=== PATIENT | female | born 1985 | race American Indian/Alaskan Native ===

== ENCOUNTER 2020-08-24 17:39 | Emergency (ER) | payer SELFPAY ==
--- NOTE | 2020-08-24 18:03 | Event Note ---
ED Screening Note Date of service: 08/24/20 Time: 18:02 ED Screening Note: 34-year-old female presents with generalized body aches, headache, inability to walk due to pain. Patient states she is visiting here from [place] patient states she arrived via plane. This initial assessment/diagnostic orders/clinical plan/treatment(s) is/are subject to change based on patients health status, clinical progression and re- assessment by fellow clinical providers in the ED. Further treatment and workup at subsequent clinical providers discretion. Patient/guardian urged not to elope from the ED as their condition may be serious if not clinically assessed and managed. Initial orders include: Labs, urinalysis, test, chest x-ray
[2020-08-24 18:43] LABS: Basophils # (Auto) 0.1 K/mm3 (0.0-0.1); Basophils % (Auto) 0.6 % (0.0-1.8); Eosinophils % (Auto) 0.1 % (0.0-4.3); Hematocrit 44.8 % (30.3-42.9); Hemoglobin 15.1 gm/dl (10.1-14.3); Lymphocytes # (Auto) 2.3 K/mm3 (1.2-5.4); Lymphocytes % (Auto) 17.5 % (13.4-35.0); Mean Corpuscular HGB Conc 34 % (30-34); Mean Corpuscular Volume 84 fl (79-97); Monocytes # (Auto) 0.7 K/mm3 (0.0-0.8); Monocytes % (Auto) 5.4 % (0.0-7.3); Platelet Count 342 K/mm3 (140-440); Red Blood Count 5.31 M/mm3 (3.65-5.03); Red Cell Distribution Width 13.5 % (13.2-15.2)
[2020-08-24 19:03] LABS: Albumin 5.8 g/dL (3.9-5); Calcium 10.6 mg/dL (8.4-10.2)
--- NOTE | 2020-08-24 19:46 | XRay Report ---
CHEST 2 VIEWS, 08/24/2020 7:16 PM INDICATION: Chest pain COMPARISON: None FINDINGS: Support devices: None. Heart: The cardiac silhouette is normal in size. Lungs/pleura: The lungs are clear of focal airspace disease or significant pleural effusion. Additional findings: No significant acute abnormality. IMPRESSION: 1. No evidence of acute cardiopulmonary process. Signer Name: Merline Nguyen MD Signed: 08/24/2020 7:42 PM Workstation Name: [id number]
[2020-08-24] MEDS ORDERED: SODIUM CHLORIDE 0.9% 1000 ML 1,000 ML IV ONE ×2 (20:01→20:02)
[2020-08-24] MEDS ORDERED: ONDANSETRON 4 MG/2 ML INJ IV ONE (20:02)
[2020-08-24] MEDS ORDERED: MORPHINE 4 MG/1 ML INJ IV ONE (20:02)
[2020-08-24 20:36] LABS: Bacteria,Urine 1+ /HPF (Negative); Bilirubin,Urine MOD (Negative); Blood,Urine NEG (Negative); Color,Urine Amber (Yellow); Hyaline Casts,Urine 38 /LPF; Mucus,Urine 2+ /HPF
[2020-08-24 20:47] LABS: Ictotest,Urine Negative (Negative)
--- NOTE | 2020-08-24 21:04 | Cat Scan Report ---
CT CHEST, ABDOMEN, AND PELVIS WITHOUT IV CONTRAST INDICATION: body pain acute kidney failure. COMPARISON: None available. TECHNIQUE: All CT scans at this location are performed using CT dose reduction for ALARA by means of automated e xposure control. Axial CT images were obtained through the chest, abdomen, and pelvis. FINDINGS: Skeletal System: No acute abnormality. CHEST: Heart: Normal. Thoracic Aorta: No acute abnormality. Mediastinum & Brandee: No significant abnormality. Lungs: No acute air space or interstitial disease. Pleura: No significant pleural effusion. No pneumothorax. Airways: No significant abnormality. Additional Findings: None. ABDOMEN: Liver: No significant abnormality. Gallbladder: No significant abnormality. Bile Ducts: No significant abnormality. Pancreas: No significant abnormality. Spleen: No significant abnormality. Adrenals: No significant abnormality. Right Kidney and Proximal Ureter: No significant abnormality. Left Kidney and Proximal Ureter: No significant abnormality. Stomach and Bowel: No significant abnormality. Lymph Nodes: No significant adenopathy. Aorta: No significant abnormality. IVC: No significant abnormality. Additional Findings: None. PELVIS: Urinary Bladder and Distal Ureters: No significant abnormality. Appendix: Not visualized. Colon: No significant abnormality. Free Fluid: None. Lymph Nodes: No significant adenopathy. Additional Findings: None. IMPRESSION: 1. There is a posterior intra-abdominal fat. Accounting for this and lack of intravenous contrast, no acute findings in the chest abdomen or pelvis. Signer Name: Camden Mckenzie MD Signed: 08/24/2020 8:59 PM Workstation Name: [id number]
--- NOTE | 2020-08-24 21:23 | Emergency Department Report ---
ED Female HPI - General Chief complaint: Nausea/Vomiting/Diarrhea Stated complaint: BODY PAIN Time Seen by Provider: 08/24/20 17:53 Source: patient, EMS Mode of arrival: Ambulatory Limitations: No Limitations - History of Present Illness Initial comments: CC: "I just want to the pain to go away." HPI: This is a 34 yo female without significant past medical history who presents with suprapubic pain, body aches, nausea vomiting since Tuesday. No fe emile. No vagnial discharge. REcent traveled via plane from [place]. Patient also has mild frontal throbbing headache. Patient recently treated for UTI one month ago.MD Complaint: pelvic pain -: Gradual, days(s) (2) Severity: severe Severity scale (0 -10): 7 Quality: cramping Consistency: constant Improves with: none Worsens with: movement Are you Now?: No Associated Symptoms: nausea/vomiting, headaches, other (Body aches) - Related Data Previous Rx's Medication Instructions Recorded Last Taken Type Doxycycline Hyclate [Doxycycline 100 mg PO Q12HR 14 Days #28 tab 08/24/20 Unknow n Rx Hyclate TAB] HYDROcodone/APAP 5-325 [[place] 1 each PO Q6HR PRN #15 tablet 08/24/20 Unknown Rx 5/325] Promethazine [Phenergan] 25 mg PO Q6HR PRN #20 tab 08/24/20 Unknown Rx Allergies Allergy/AdvReac Type Severity Reaction Status Date / Time No Known Allergies Allergy Unverified 08/24/20 17:53 ED Review of Systems ROS: Stated complaint: BODY PAIN Other details as noted in HPI Comment: All other systems reviewed and negative Constitutional: malaise. denies: fever ENT: denies: throat pain Respiratory: denies: cough, shortness of breath Cardiovascular: denies: chest pain Gastrointestinal: nausea Genitourinary: denies: discharge Neurological: headache ED Past Medical Hx - Past Medical History Previous Medical History?: No - Surgical History Past Surgical History?: Yes Additional Surgical History: Ectopic - Social History Smoking Status: Current Every Day Smoker Substance Use Type: Alcohol, Marijuana - Medications Home Medications: Home Medications Medication Instructions Recorded Confirmed Last Taken Type Doxycycline Hyclate [Doxycycline 100 mg PO Q12HR 14 Days #28 tab 08/24/20 Unknown Rx Hyclate TAB] HYDROcodone/APAP 5-325 [[place] 1 each PO Q6HR PRN #15 tablet 08/24/20 Unknown Rx 5/325] Promethazine [Phenergan] 25 mg PO Q6HR PRN #20 tab 08/24/20 Unknown Rx ED Physical Exam - General Limitations: No Limitations General appearance: alert, in no apparent distress, anxious, other (Appears in pain) - Head Head exam: Present: atraumatic, normocephalic - Eye Eye exam: Present: normal appearance - ENT ENT exam: Present: mucous membranes moist - Neck Neck exam: Present: normal inspection, full ROM - Respiratory Respiratory exam: Present: normal lung sounds bilaterally. Absent: respiratory distress, wheezes, rales, rhonchi - Cardiovascular Cardiovascular Exam: Present: normal rhythm, tachycardia, normal heart sounds. Absent: systolic murmur, diastolic murmur, rubs, gallop - GI/Abdominal GI/Abdominal exam: Present: soft, normal bowel sounds. Absent: distended, tenderness, guarding, rebound - Speculum exam: Present: vaginal discharge, cervical discharge, other (Copious purulent discharge from cervix pooling in vagina) Bi-manual exam: Present: cervical motion tendernes, uterine tenderness - Extremities Exam Extremities exam: Present: normal inspection - Neurological Exam Neurological exam: Present: alert, oriented X3 - Psychiatric Psychiatric exam: Present: normal affect, anxious - Skin Skin exam: Present: warm, dry, intact, normal color. Absent: rash ED Course Vital Signs 08/24/20 08/24/20 08/24/20 18:02 20:17 20:51 Temperature 98.4 F Pulse Rate 110 H 91 H Respiratory 20 20 22 Rate Blood Pressure 116/88 Blood Pressure 122/85 [Right] O2 Sat by Pulse 98 97 Oximetry 08/24/20 22:14 Temperature Pulse Rate 85 Respiratory 12 Rate Blood Pressure Blood Pressure 139/86 [Right] O2 Sat by Pulse 99 Oximetry ED Medical Decision Making - Lab Data Result diagrams: 08/24/20 18:19 08/24/20 18:19 Laboratory Results - last 24 hr 08/24/20 08/24/20 08/24/20 18:19 18:19 18:19 WBC 13.0 H RBC 5.31 H Hgb 15.1 H Hct 44.8 H MCV 84 MCH 28 MCHC 34 RDW 13.5 Plt Count 342 Lymph % (Auto) 17.5 [place] % (Auto) 5.4 Eos % (Auto) 0.1 Baso % (Auto) 0.6 Lymph # (Auto) 2.3 [place] # (Auto) 0.7 Eos # (Auto) 0.0 Baso # (Auto) 0.1 Seg Neutrophils % 76.4 H Seg Neutrophils # 10.0 H Sodium 142 Potassium 3.9 Chloride 100.2 Carbon Dioxide 24 Anion Gap 22 BUN 26 H Creatinine 2.2 H Estimated GFR 26 BUN/Creatinine Ratio 12 Glucose 116 H Calcium 10.6 H Total Bilirubin 0.60 AST 18 ALT 10 Alkaline Phosphatase 71 Total Creatine Kinase Total Protein 9.4 H Albumin 5.8 H Albumin/Globulin Ratio 1.6 Lipase 13 HCG, Qual Negative Urine Color Urine Turbidity Urine pH Ur Specific [place] Urine Protein Urine Glucose (UA) Urine Ketones Urine Blood Urine Nitrite Urine Bilirubin Urine Ictotest Urine Urobilinogen Ur Leukocyte Esterase Urine WBC (Auto) Urine RBC (Auto) U Epithel Cells (Auto) Urine Bacteria (Auto) Urine WBC Clumps Hyaline Casts Urine Mucus Urine Yeast (Budding) 08/24/20 08/24/20 20:13 Unknown WBC RBC Hgb Hct MCV MCH MCHC RDW Plt Count Lymph % (Auto) [place] % (Auto) Eos % (Auto) Baso % (Auto) Lymph # (Auto) [place] # (Auto) Eos # (Auto) Baso # (Auto) Seg Neutrophils % Seg Neutrophils # Sodium Potassium Chloride Carbon Dioxide Anion Gap BUN Creatinine Estimated GFR BUN/Creatinine Ratio Glucose Calcium Total Bilirubin AST ALT Alkaline Phosphatase Total Creatine Kinase 177 H Total Protein Albumin Albumin/Globulin Ratio Lipase HCG, Qual Urine Color Cecile Urine Turbidity Cloudy Urine pH 5.0 Ur Specific [place] 1.024 Urine Protein 100 mg/dl Urine Glucose (UA) Neg Urine Ketones Neg Urine Blood Neg Urine Nitrite Neg Urine Bilirubin Mod Urine Ictotest Negative Urine Urobilinogen 2.0 Ur Leukocyte Esterase Tr Urine WBC (Auto) 27.0 H Urine RBC (Auto) 10.0 U Epithel Cells (Auto) 17.0 H Urine Bacteria (Auto) 1+ Urine WBC Clumps 2+ Hyaline Casts 38 Urine Mucus 2+ Urine Yeast (Budding) 1+ - Medical Decision Making PID: ceftriaxone, doxycycline given in ED JAYSON: unclear reason, possible Dehydration, given IVF Urinalysis reflex contaminated sample as well as WBCs mucus likely from PID. Work-up otherwise reveals leukocytosis. CT abdomen pelvis without evidence of acute inflammatory process. Vital Signs - 24 hr 08/24/20 08/24/20 08/24/20 18:02 20:17 20:51 Temperature 98.4 F Pulse Rate 110 H 91 H Respiratory 20 20 22 Rate Blood Pressure 116/88 Blood Pressure 122/85 [Right] O2 Sat by Pulse 98 97 Oximetry 08/24/20 22:14 Temperature Pulse Rate 85 Respiratory 12 Rate Blood Pressure Blood Pressure 139/86 [Right] O2 Sat by Pulse 99 Oximetry Critical care attestation.: If time is entered above; I have spent that time in minutes in the direct care of this critically ill patient, excluding procedure time. ED Disposition Clinical Impression: Pelvic inflammatory disease, Acute kidney injury Disposition: - TO HOME OR SELFCARE Is pt being admited?: No Does the pt Need Aspirin: No Condition: Stable Instructions: Pelvic Inflammatory Disease, [id number] Prescriptions: Doxycycline Hyclate [Doxycycline Hyclate TAB] 100 mg PO Q12HR 14 Days #28 tab HYDROcodone/APAP 5-325 [[place] 5/325] 1 each PO Q6HR PRN #15 tablet PRN Reason: Pain Promethazine [Phenergan] 25 mg PO Q6HR PRN #20 tab PRN Reason: Nausea Referrals: MIGUEL ANGEL PATTON MD [Staff Physician] - 7-10 days
[2020-08-24] MEDS ORDERED: LIDOCAINE-MPF (1%) 10 MG/1 ML VIAL 5 ML INFILTRATI ONE (21:56)
[2020-08-24] MEDS ORDERED: DOXYCYCLINE 100 MG CAP PO ONE (21:56)
[2020-08-25 00:20] VITALS: BP 118/77
== END 2020-08-25 00:19 | disposition home or self-care (01) ==
LOC: ED 17:39
DX: N73.9 Female pelvic inflammatory disease, unspecified (principal); N17.9 Acute kidney failure, unspecified; F17.200 Nicotine dependence, unspecified, uncomplicated; F12.90 Cannabis use, unspecified, uncomplicated; Z79.899 Other long term (current) drug therapy; Z98.890 Other specified postprocedural states
CPT/HCPCS: 36415; 71046; 71250; 74176; 80053; 81001; 82550; 83690; 84703; 85025; 87086; 87591; 96361; 96372; 96374; 96375; 99285; J0696; J2270; J2405; J7030